=== PATIENT | female | born 1955 | race Caucasian/White ===

== ENCOUNTER 2020-05-13 08:00 | Outpatient (CLI) | payer MEDICARE ==
[2020-05-13 11:31] LABS: BASOPHILS % (AUTO) 0.5 %; EOSINOPHILS # (AUTO) 0.3 10^3/uL (0.0-0.7); EOSINOPHILS % (AUTO) 4.4 %; HGB - HEMOGLOBIN 11.6 g/dL (12.0-16.0); LYMPHOCYTES # (AUTO) 2.3 10^3/uL (1.5-3.5); LYMPHOCYTES % (AUTO) 29.4 %; MEAN CORPUSCULAR HGB CONC 31.8 g/dL (32.0-36.0); MONOCYTES # (AUTO) 0.5 10^3/uL (0.0-1.0); MONOCYTES % (AUTO) 6.9 %; NEUTROPHILS # (AUTO) 4.5 10^3/uL (1.5-6.6); NEUTROPHILS % (AUTO) 58.7 %; PLT - PLATELET COUNT 274 10^3/uL (130-450); RED BLOOD COUNT 4.15 10^6/uL (4.20-5.40); RED CELL DISTRIBUTION WIDTH 15.3 % (12.0-15.0); WHITE BLOOD COUNT 7.7 x10^3/uL (4.8-10.8)
[2020-05-13 11:51] LABS: ALBUMIN/GLOBULIN RATIO 1.1 (1.0-2.2); ALKALINE PHOSPHATASE 93 IU/L (42-121); ALT ALANINE AMINOTRANSFERASE 27 IU/L (10-60); AST ASPARTATE AMINOTRANSFERASE 28 IU/L (10-42); BILIRUBIN,TOTAL 0.6 mg/dL (0.2-1.0); BUN - BLOOD UREA NITROGEN 14 mg/dL (6-20); CARBON DIOXIDE - CO2 25 mmol/L (21-32); CHLORIDE 102 mmol/L (101-111); CHOL/HDL RATIO 2.9 (<4.4); CHOLESTEROL 132 mg/dL; CREATININE 0.8 mg/dL (0.4-1.0); CREATININE,URINE 182.1 mg/dL; GLUCOSE 112 mg/dL (70-100); HDL CHOLESTEROL 46 mg/dL; LDL CHOLESTEROL,CALCULATED 56 mg/dL; LDL/HDL RATIO 1.2 (<4.4); MICROALBUM/CREATININE RATIO,UR 4.9 ug/mg (<30.0); MICROALBUMIN,URINE 0.9 mg/dL (0-300.0); SODIUM 136 mmol/L (135-145); TOTAL PROTEIN 7.6 g/dL (6.7-8.2); VLDL CHOLESTEROL 30 mg/dL
[2020-05-13 12:18] LABS: HEMOGLOBIN A1c% 6.7 % (4.27-6.07)
== END 2020-05-13 23:59 | disposition home or self-care (01) ==
LOC: LAB.WCP 08:00
PROVIDERS: ATTEND Registered Nurse
DX: I10 Essential (primary) hypertension (principal); J44.9 Chronic obstructive pulmonary disease, unspecified; E78.5 Hyperlipidemia, unspecified; E11.9 Type 2 diabetes mellitus without complications; E03.9 Hypothyroidism, unspecified; F41.8 Other specified anxiety disorders
CPT/HCPCS: 36415; 80053; 80061; 82043; 82570; 83036; 83721; 84443; 85025

== ENCOUNTER 2020-05-31 10:48 | Outpatient (CLI) | payer MEDICARE ==
--- NOTE | 2020-05-31 12:12 | XRAY Report ---
PROCEDURE: Knee 4 View LT INDICATIONS: LEFT KNEE JOINT PAIN TECHNIQUE: 4 views of the left knee(s) were acquired. COMPARISON: None. FINDINGS: Bones: No fractures or dislocations. No suspicious bony lesions. Soft tissues: No joint effusion. No suspicious soft tissue calcifications. IMPRESSION: There is a slight degree of medial compartment joint space narrowing indicating minimal osteoarthritis in that area. No effusion or loose body found. No trauma seen. Reviewed by: Selvin Salmeron MD on 05/31/2020 12:11 PM PDT Approved by: Selvin Salmeron MD on 05/31/2020 12:11 PM PDT Station ID: [id number]
== END 2020-05-31 10:49 | disposition home or self-care (01) ==
LOC: DI 10:48
PROVIDERS: ATTEND Family Medicine
DX: M17.12 Unilateral primary osteoarthritis, left knee (principal)

== ENCOUNTER 2020-08-29 09:25 | Outpatient (CLI) | payer MEDICARE | END 2020-08-29 09:26 | disposition home or self-care (01) | LOC: LAB.R 09:25 | PROVIDERS: ATTEND Family Medicine | DX: R05 Cough (principal); Z20.828 Contact with and (suspected) exposure to other viral communicable diseases | CPT/HCPCS: 87275; 87276; U0004 ==

== ENCOUNTER 2020-10-17 10:04 | Outpatient (CLI) | payer MEDICARE ==
--- NOTE | 2020-10-17 14:07 | XRAY Report ---
PROCEDURE: Cervical Spine w/Flex/Ext INDICATIONS: lamenetomy 2015, pain stimulator 2019 TECHNIQUE: 5 views of the cervical spine were acquired. Flexion and extension views were acquired. COMPARISON: None. FINDINGS: Bones: No fractures or dislocations to the T1 level. There is anterior cervical fusion hardware from C5 through C7 which appears intact. An epidural nerve stimulator lead is present from C3 through C7. No suspicious bony lesions. There is limited range of motion in flexion and extension with preserved alignment. Soft tissues: Prevertebral soft tissues are normal in thickness. Mild bilateral carotid calcificati ons. IMPRESSION: 1. Intact anterior cervical fusion hardware. 2. Preserved alignment in flexion and extension but with limited range of motion. Reviewed by: Mariel Davison MD on 10/17/2020 12:03 PM [place] Approved by: Mariel Davison MD on 10/17/2020 12:03 PM [place] Station ID: [id number]
== END 2020-10-17 10:05 | disposition home or self-care (01) ==
LOC: DI 10:04
PROVIDERS: ATTEND Pain Medicine Pain Medicine
DX: M96.1 Postlaminectomy syndrome, not elsewhere classified (principal)

== ENCOUNTER 2020-11-04 12:35 | Outpatient (CLI) | payer MEDICARE ==
[2020-11-04 15:31] VITALS: BP 129/89
--- NOTE | 2020-11-04 15:31 | SLEEP CARE CONSULTATION ---
Information from patient questionnaire entered by Sisi Melendez. I have reviewed and concur with the information entered by Sisi Melendez. This document represents the service I personally performed and the decisions made by me, Gina Humphrey MD, [facility]. History of Present Illness Service Date and Time: 11/04/2020 1235 Reason for Visit: New patient, Previously diagnosed sleep apnea, sleep apnea on CPAP therapy Usual bedtime: 9 pm Time it takes to fall asleep: 30 minutes Snores at night: Yes Observed to quit breathing while asleep: Yes Sleeps alone due to snoring: No Number of times waking at night: 1 Reasons for waking at night: reports: Pain, Bathroom Toss, Turn, or Twitch while sleeping: No Recalls having dreams: No Usually gets out of bed at: 6 am Feels refreshed in the morning: Yes Morning headache: No Sleepy or fatigued during the day: Yes Ever fallen asleep while driving: No Takes day naps: Yes Dreams during day naps: No Prior sleep studies: Yes Additional HPI information: I had the pleasure of seeing Ms. Soto today regarding obstructive sleep apnea- hypopnea. As you know, she is a 65 year old lady who was diagnosed with the sleep-disordered breathing in [place]. She had 3 sleep studies. The records are not available. She said she was originally started on CPAP and later switched to a BiPAP ASV in 2019 for central sleep apnea. Her BiPAP ASV is set at: EPAP 9 14; Pressure support 3 16; and respiratory rate: auto. She uses every night and all night. The compliance data show usage in 178 out of the past 180 nights, averaging 8.7 hours a night. The residual AHI is 1.8 and average air leak is 16 minutes. She wears a ResMed AirTouch F-20 full face mask. She gets his supplies from [employer]. She finds the treatment very beneficial. - Parasomnia Symptoms Ever been unable to move upon waking from sleep: No Ever felt weak in the knees when startled or emotional: No Bothered by creepy, crawly, restless sensations in legs: No Problems with memory or concentration: No CPAP Compliance Data - Data Reviewed with Patient Average duration of nightly device use: 8 hr 40 min Compliance rate %: 96.1 (180 days) Current pressure setting (cmH2O): 25/16 Humidity settin Heated hose settin Average residual AHI: 3.9 Average large leak: 16 min 23 sec Subjective Initial [place] Sleepiness Scale score: 16 (in 2020) Past Medical History Past Medical History: reports: Hypertension, Diabetes, Hypothyroidism, Anxiety, Other (COPD) Social History The patient's occupation is not employed, disabled. Patient is Single and lives in [place]. Have you smoked in the past 12 months: Yes Cigarettes per day (20/pack): 20 Years of smokin Smoking Pack Years: 35.0 Alcohol use: Yes Alcohol amount and frequency: 1 drink on susannah Caffeine use: Yes Caffeine amount and frequency: 2 a day Family History Family history of sleep disordered breathing: Yes (brother) Family Hx Sleep Apnea: Sibling: Sleep apnea - Treated Allergies and Home Medications Drug allergies reviewed: Yes Home medication list reviewed: Yes Review of Systems Cardiovascular: reports: high blood pressure Respiratory: denies: shortness of breath, wheeze, sputum production, chronic cough, other Gastrointestinal: denies: heartburn, difficulty swallowing, nausea, vomitting, diarrhea, abdominal pain, other Urinary: denies: incontinence, frequency, urgency, impotence, other Neurological: denies: headaches, seizure, head trauma, disorientation, speech dysfunction, gait or balance problems, fainting or unconsciousness, other Psychiatric: reports: anxiety Ear/Nose/Throat: reports: sinus problems, dry mouth/throat, tonsillectomy, wisdom teeth removed Endocrine: reports: thyroid disease Musculoskeletal: reports: joint pain, neck pain, back pain Immunologic: reports: sneezing Physical Exam Vital signs obtained and entered by: Dr. Humphrey Blood Pressure: 129/89 Cuff size: regular Heart Rate: 95 O2 Saturation: 96 Height: 4 ft 9 in Weight: 200 lb Body Mass Index: 43.2 BMI Classification: Morbidly Obese Neck circumference: 17 Mood/affect: normal Impression and Plan IMPRESSION: 1. Central Sleep Apnea, most likely due to opiate pain medication that she takes for chronic pain. The BiPAP ASV is effective at the current setting. Her mask fits well. She has very good compliance. I will order her new supplies through [employer]. Otherwise, no adjustment is necessary today. Plan: 1. Prescription made for supplies. 2. Avoid long distance driving or when feeling sleepy. 3. Avoid alcohol, sedative and muscle relaxant around bedtime. 4. Attempt to lose weight. Counseling Topics: Weight loss health impact Visit Type: In Office Time Spent with Patient (minutes): 15 Provider Statement: I spent 100% of the Face to Face Visit with the patient with greater than 50% spent counseling the patient and coordination of care.
== END 2020-11-04 12:36 | disposition home or self-care (01) ==
LOC: SC 12:35
PROVIDERS: ATTEND Internal Medicine Pulmonary Disease
DX: G47.31 Primary central sleep apnea (principal); F17.210 Nicotine dependence, cigarettes, uncomplicated; E66.01 Morbid (severe) obesity due to excess calories; Z68.41 Body mass index [BMI] 40.0-44.9, adult
CPT/HCPCS: 99202; G0463; 99212

== ENCOUNTER 2021-01-09 08:00 | Outpatient (CLI) | payer MEDICARE ==
[2021-01-09 17:48] LABS: CALCIUM 10.4 mg/dL (8.5-10.3); CREATININE 0.8 mg/dL (0.4-1.0); CREATININE,URINE 55.6 mg/dL; MICROALBUM/CREATININE RATIO,UR 5.4 ug/mg (<30.0); MICROALBUMIN,URINE 0.3 mg/dL (0-300.0); POTASSIUM 4.7 mmol/L (3.5-5.0)
[2021-01-09 20:23] LABS: ESTIMATED AVERAGE GLUCOSE 143 mg/dL (70-100); HEMOGLOBIN A1c% 6.6 % (4.27-6.07)
== END 2021-01-09 08:01 | disposition home or self-care (01) ==
LOC: LAB.WCP 08:00
PROVIDERS: ATTEND Family Medicine
DX: E11.9 Type 2 diabetes mellitus without complications (principal)
CPT/HCPCS: 36415; 80048; 82043; 82570; 83036

== ENCOUNTER 2021-01-20 16:43 | Outpatient (CLI) | payer MEDICARE | END 2021-01-20 16:44 | disposition home or self-care (01) | LOC: COV 16:43 | PROVIDERS: ATTEND Ophthalmology | DX: Z01.812 Encounter for preprocedural laboratory examination (principal); H25.811 Combined forms of age-related cataract, right eye; E11.9 Type 2 diabetes mellitus without complications; Z20.822 Contact with and (suspected) exposure to COVID-19 ==

== ENCOUNTER 2021-01-23 06:09 | Day surgery (SDC) | payer MEDICARE ==
[2021-01-23] MEDS ORDERED: KETOROLAC 0.45% OPHTH DROPS ONE (06:26)
[2021-01-23] MEDS ORDERED: PROPARACAINE 0.5% OPHTH DROPS 15 ML ONE (06:26)
[2021-01-23] MEDS ORDERED: CYCLOPENTOLATE 2% OPHTH DROPS 2 ML RIGHTEYE ONE (06:45)
[2021-01-23] MEDS ORDERED: PHENYLEPHRINE 2.5% OPHTH 2 ML DROPS RIGHTEYE ONE (06:47)
[2021-01-23] MEDS ORDERED: LACTATED RINGERS 500 ML IV ONE (07:00)
[2021-01-23] MEDS ORDERED: BSS/LIDOCAINE/EPINEPHRINE 1 ML SYRINGE ONE (07:06)
[2021-01-23] MEDS ORDERED: EPINEPHrine 1 MG/ML AMP ONE (07:06)
[2021-01-23] MEDS ORDERED: BRIMONIDINE 0.2% OPHTH DROPS 5 ML ONE (07:06)
[2021-01-23] MEDS ORDERED: TIMOLOL 0.5% OPHTH DROPS ONE (07:06)
[2021-01-23] MEDS ORDERED: TRIAMCIN/MOXIFLOX OPHTHALMIC 0.6 ML VIAL IO ONE ×2 (07:06→07:32)
[2021-01-23] MEDS ORDERED: VANCOMYCIN OPHTHALMI 8MG/0.8ML 8 MG/0.8 ML SYRINGE IO ONE ×2 (07:06→07:33)
[2021-01-23] MEDS ORDERED: MIDAZOLAM 2 MG/2 ML VIAL ONE (07:08)
--- NOTE | 2021-01-23 07:11 | ANESTHESIA ---
Pre-Anesthesia VS, & Labs - Diagnosis r senile combined cataract - Procedure r extraction cataract w/IOL Vital Signs: Temp Pulse Resp BP Pulse Ox 36.0 C L 87 16 113/70 98 01/23/21 06:35 01/23/21 06:35 01/23/21 06:35 01/23/21 06:35 01/23/21 06:35 Height: 4 ft 9 in Weight (kg): 77 kg Body Mass Index: 36.7 BMI Classification: Obese - NPO >8 hours - Is Patient ?: No - Lab Results Current Lab Results: Laboratory Tests 01/23/21 06:47: POC Whole Bld Glucose 113 H Lab results reviewed: Yes Home Medications and Allergies Home Medications: Ambulatory Orders Atorvastatin Calcium 40 mg PO DAILY PM 01/22/21 Cyclobenzaprine [Flexeril] 10 mg PO BID 01/22/21 Escitalopram [Lexapro] 10 mg PO DAILY 01/22/21 Fluticasone Propionate [Flovent Diskus] 100 mcg IH BID PRN 01/22/21 Gabapentin [Neurontin] 400 mg PO BID 01/22/21 Lisinopril [Zestril] 10 mg PO DAILY PM 01/22/21 Melatonin/Pyridoxine [Melatonin 5 mg Tablet] 1 tab PO DAILY PM 01/22/21 Galvin-3 Acid Ethyl Esters [Lovaza] 2 gm PO BID 01/22/21 Varenicline Tartrate [Chantix] 1 mg PO BID 01/22/21 guaiFENesin [Mucinex] 600 mg PO BID 01/22/21 metFORMIN [Glucophage] 500 mg PO DAILY 01/22/21 Levothyroxine [Synthroid] 25 mg PO DAILY 01/23/21 Atorvastatin Calcium 40 mg PO DAILY PM 01/22/21 Cyclobenzaprine [Flexeril] 10 mg PO BID 01/22/21 Escitalopram [Lexapro] 10 mg PO DAILY 01/22/21 Fluticasone Propionate [Flovent Diskus] 100 mcg IH BID PRN 01/22/21 Gabapentin [Neurontin] 400 mg PO BID 01/22/21 Lisinopril [Zestril] 10 mg PO DAILY PM 01/22/21 Melatonin/Pyridoxine [Melatonin 5 mg Tablet] 1 tab PO DAILY PM 01/22/21 Galvin-3 Acid Ethyl Esters [Lovaza] 2 gm PO BID 01/22/21 Varenicline Tartrate [Chantix] 1 mg PO BID 01/22/21 guaiFENesin [Mucinex] 600 mg PO BID 01/22/21 metFORMIN [Glucophage] 500 mg PO DAILY 01/22/21 Levothyroxine [Synthroid] 25 mg PO DAILY 01/23/21 Allergies/Adverse Reactions: Allergies Allergy/AdvReac Type Severity Reaction Status Date / Time propoxyphene Allergy Anaphylaxis Verified 01/23/21 06:53 [From Darvocet-N] methadone AdvReac Unknown Verified 01/23/21 06:53 Anes History & Medical History - Anesthetic History Anesthesia Complications: reports: No previous complications Family history of Anesthesia Complications: Denies Family history of Malignant Hyperthermia: Denies - Medical History Cardiovascular: reports: Hypertension, High cholesterol Pulmonary: reports: Sleep apnea, CPAP use Gastrointestinal: reports: None Urinary: reports: None, Other Musculoskeletal: reports: Osteoarthritis Endocrine/Autoimmune: reports: Type 2 diabetes Skin: reports: None - Surgical History Eyes Ears Nose Throat (EENT): reports: Tonsil/Adenoidectomy Gynecologic: reports: Hysterectomy Orthopedic: reports: Spine surgery Exam General: Alert, Oriented x3, Cooperative Dental: Dentures full Upper, Dentures full Lower Mouth Openin Fingerbreadth Neck Mobility: Normal Mallampati classification: II Thyromental Distance: 4-6 cm Respiratory: Lungs clear, Normal breath sounds, No respiratory distress Cardiovascular: Regular rate Neurological: Normal speech Mental/Cognitive Status: Alert/Oriented X3, Normal for patient Cognitive Status: Within normal limits Plan Anesthesia Type: MAC Consent for Procedure(s) Verified and Reviewed: Yes Code Status: Attempt Resuscitation ASA classification: 2-Mild systemic disease Is this case an emergency?: No
[2021-01-23] MEDS ORDERED: BRIMONIDINE 0.2% OPHTH DROPS 5 ML OPTH ONE (07:31)
[2021-01-23] MEDS ORDERED: BSS/LIDOCAINE/EPINEPHRINE 1 ML SYRINGE IO ONE (07:32)
[2021-01-23] MEDS ORDERED: EPINEPHrine 1 MG/ML AMP IR ONE (07:32)
[2021-01-23] MEDS ORDERED: TIMOLOL 0.5% OPHTH DROPS OPTH ONE (07:32)
[2021-01-23] MEDS ORDERED: CHONDR SULF/HYALURONATE SYRINGE IO ONE (07:32)
[2021-01-23] MEDS ORDERED: PROPARACAINE 0.5% OPHTH DROPS 15 ML EACHEYE ONE (07:33)
[2021-01-23] MEDS ORDERED: LACTATED RINGERS 1,000 ML IV ONE (07:58)
--- NOTE | 2021-01-23 07:58 | OPERATIVE REPORT ---
Operative Report - Other Other Information/Narrative: Date of Surgery: 01/23/21 Preop Dx: Visually significant cataract right eye. This was the first cataract surgery. Postop Dx: Same Procedure: Phacoemulsification with posterior chamber intraocular lens implant right eye Surgeon: Dr. Fernandez Sher Anesthesia: Monitored anesthesia care Complications: None Operative Indications: This is a 65-year-old F with progressive vision loss in the right eye due to 2+ nuclear sclerotic. Best corrected visual acuity was 20/40 with glare to 20/150 vision in the right eye. Indications for surgery were: - Overall decrease in vision - Difficulty seeing words on a computer screen - Difficulty reading - Difficulty seeing words, closed captions, or game scores on TV - Difficulty seeing street signs - Difficulty driving at night because of headlights from other vehicles - Difficulty with glare or bright lights in any situation The patient was consented at length concerning the risks and benefits of cataract surgery after which the patient expressed a desire to proceed with surgery. Operative Procedure: The patient was taken into OR#3 and placed under monitored anesthesia care. A surgical time-out was conducted confirming correct patient, correct procedure, and correct surgical site. The patient was given topical ane sthesia and then prepped and draped in the usual sterile fashion. The eye was entered at the 6 and 3 oclock positions. Intracameral Shugarcaine was injected into the anterior chamber followed by a dispersive viscoelastic. A continuous- tear curvilinear capsulorhexis was performed. The nucleus was hydrodissected and phacoemulsified. The cortex was evacuated using automated infusion and aspiration. A cohesive viscoelastic was injected into the capsular bag and a 18.0 diopter intraocular lens was inserted into the bag. Infusion and aspiration were used to evacuate the viscoelastic materials from the eye. The wounds were hydrated and the eye inflated to physiologic pressure using balanced salt solution. Approximately 0.25ml of a mixture of triamcinolone and moxifloxacin was injected trans-sclerally into the vitreous in the inferotemporal quadrant using a 30 gauge cannula. An additional 0.55ml of a mixture of triamcinolone, moxifloxacin, and vancomycin was injected subconjunctivally in the superior quadrant for infection and inflammation prophylaxis. Wound integrity was checked with Weck-Mesha sponges. The patient was taken from the operating room in good condition and given post-op instructions.
[2021-01-23 08:01] VITALS: BP 111/78
--- NOTE | 2021-01-23 10:08 | ANESTHESIA POST OP EVALUATION ---
Anesthesia Post Eval - Post Anesthesia Eval Vitals: Last Vital Signs Temp 36.2 C L 01/23/21 08:00 Pulse 81 01/23/21 08:00 Resp 16 01/23/21 08:00 BP 111/78 01/23/21 08:00 Pulse Ox 98 01/23/21 08:00 CV Function Including HR & BP: Stable Pain Control: Satisfactory Nausea & Vomiting: Negative Mental Status: Baseline Respiratory Status: Airway Patent Hydration Status: Satisfactory Anesthesia Complications: None
== END 2021-01-23 06:10 | disposition home or self-care (01) ==
LOC: SDS 06:09
PROVIDERS: ATTEND Ophthalmology
DX: E11.36 Type 2 diabetes mellitus with diabetic cataract (principal); H25.811 Combined forms of age-related cataract, right eye; H18.593 Other hereditary corneal dystrophies, bilateral; I10 Essential (primary) hypertension; E78.00 Pure hypercholesterolemia, unspecified; G47.30 Sleep apnea, unspecified; F41.9 Anxiety disorder, unspecified; E03.9 Hypothyroidism, unspecified; M19.90 Unspecified osteoarthritis, unspecified site; Z87.891 Personal history of nicotine dependence; E66.9 Obesity, unspecified; Z68.36 Body mass index [BMI] 36.0-36.9, adult; Z79.84 Long term (current) use of oral hypoglycemic drugs; Z79.899 Other long term (current) drug therapy
CPT/HCPCS: 66984; A9270; J3490; J7120

== ENCOUNTER 2021-02-27 06:22 | Day surgery (SDC) | payer MEDICARE ==
[~2021-02-27 06:22] MED LIST: KETOROLAC 0.45% OPHTH DROPS ONE; PROPARACAINE 0.5% OPHTH DROPS 15 ML ONE
[2021-02-27] MEDS: PHENYLEPHRINE 2.5% OPHTH 2 ML DROPS ONE ×3 (06:38→06:48)
[2021-02-27] MEDS: CYCLOPENTOLATE 1% OPHTH DROPS 2 ML ONE ×3 (06:39→06:49)
[2021-02-27] MEDS ORDERED: LACTATED RINGERS 1,000 ML IV ONE (06:44)
[2021-02-27] MEDS ORDERED: TIMOLOL 0.5% OPHTH DROPS ONE (07:02)
[2021-02-27] MEDS ORDERED: TRIAMCIN/MOXIFLOX OPHTHALMIC 0.6 ML VIAL IO ONE ×2 (07:02→07:31)
[2021-02-27] MEDS ORDERED: EPINEPHrine 1 MG/ML AMP ONE (07:02)
[2021-02-27] MEDS ORDERED: BRIMONIDINE 0.2% OPHTH DROPS 5 ML ONE (07:02)
[2021-02-27] MEDS ORDERED: BSS/LIDOCAINE/EPINEPHRINE 1 ML SYRINGE ONE (07:03)
[2021-02-27] MEDS ORDERED: VANCOMYCIN OPHTHALMI 8MG/0.8ML 8 MG/0.8 ML SYRINGE IO ONE ×2 (07:03→07:31)
[2021-02-27] MEDS ORDERED: MIDAZOLAM 2 MG/2 ML VIAL ONE (07:05)
--- NOTE | 2021-02-27 07:09 | ANESTHESIA ---
Pre-Anesthesia VS, & Labs - Diagnosis left eye senile combined cataract - Procedure left eye cataract extraction with IOL implant Height: 4 ft 9 in Weight (kg): 78.7 kg Body Mass Index: 37.5 BMI Classification: Obese - NPO >8 hours - Is Patient ?: No - Lab Results Current Lab Results: Laboratory Tests 02/27/21 06:47: POC Whole Bld Glucose 102 H Home Medications and Allergies Atorvastatin Calcium 40 mg PO DAILY PM 01/22/21 Cyclobenzaprine [Flexeril] 10 mg PO BID 01/22/21 Escitalopram [Lexapro] 10 mg PO DAILY 01/22/21 Fluticasone Propionate [Flovent Diskus] 100 mcg IH BID PRN 01/22/21 Gabapentin [Neurontin] 400 mg PO BID 01/22/21 Lisinopril [Zestril] 10 mg PO DAILY PM 01/22/21 Melatonin/Pyridoxine [Melatonin 5 mg Tablet] 1 tab PO DAILY PM 01/22/21 Thorndike-3 Acid Ethyl Esters [Lovaza] 2 gm PO BID 01/22/21 Varenicline Tartrate [Chantix] 1 mg PO BID 01/22/21 guaiFENesin [Mucinex] 600 mg PO BID 01/22/21 metFORMIN [Glucophage] 500 mg PO DAILY 01/22/21 Levothyroxine [Synthroid] 25 mg PO DAILY 01/23/21 Allergies/Adverse Reactions: Allergies Allergy/AdvReac Type Severity Reaction Status Date / Time propoxyphene Allergy Anaphylaxis Verified 02/27/21 06:41 [From Darvocet-N] methadone AdvReac Unknown Verified 02/27/21 06:41 Anes History & Medical History - Anesthetic History Anesthesia Complications: reports: No previous complications - Medical History Cardiovascular: reports: Hypertension, High cholesterol Pulmonary: reports: COPD, Sleep apnea, CPAP use Gastrointestinal: reports: None Urinary: reports: None Neuro: reports: None Musculoskeletal: reports: None Endocrine/Autoimmune: reports: Type 2 diabetes, HyPOthyroidism Blood Disorders: reports: None Skin: reports: None Psychosocial: reports: No issues indicated - Surgical History General: reports: Other Eyes Ears Nose Throat (EENT): reports: Cataracts, Tonsil/Adenoidectomy Gynecologic: reports: section, Hysterectomy Exam General: Alert, Oriented x3, Cooperative, No acute distress Dental: Dentures full Upper, Dentures full Lower Mouth Openin Fingerbreadth Neck Mobility: Normal Mallampati classification: III Thyromental Distance: 4-6 cm Mental/Cognitive Status: Alert/Oriented X3, Normal for patient Plan Anesthesia Type: MAC Consent for Procedure(s) Verified and Reviewed: Yes Code Status: Attempt Resuscitation ASA classification: 3-Severe systemic disease Is this case an emergency?: No
[2021-02-27] MEDS ORDERED: EPINEPHrine 1 MG/ML AMP IR ONE (07:30)
[2021-02-27] MEDS ORDERED: BRIMONIDINE 0.2% OPHTH DROPS 5 ML OPTH ONE (07:30)
[2021-02-27] MEDS ORDERED: TIMOLOL 0.5% OPHTH DROPS OPTH ONE (07:31)
[2021-02-27] MEDS ORDERED: BSS/LIDOCAINE/EPINEPHRINE 1 ML SYRINGE IO ONE (07:31)
[2021-02-27] MEDS ORDERED: CHONDR SULF/HYALURONATE SYRINGE IO ONE (07:31)
[2021-02-27] MEDS ORDERED: PROPARACAINE 0.5% OPHTH DROPS 15 ML EACHEYE ONE (07:31)
[2021-02-27] MEDS ORDERED: LACTATED RINGERS 700 ML IV ONE (07:48)
[2021-02-27 08:11] VITALS: BP 124/70
--- NOTE | 2021-02-27 09:01 | OPERATIVE REPORT ---
Operative Report - Other Other Information/Narrative: Date of Surgery: 02/27/21 Preop Dx: Visually significant cataract left eye. Cataract surgery was performed in the right eye on 01/23/21. Postop Dx: Same Procedure: Phacoemulsification with posterior chamber intraocular lens implant left eye Surgeon: Dr. Fernandez Sher Anesthesia: Monitored anesthesia care Complications: None Operative Indications: This is a 65-year-old F with progressive vision loss in the left eye due to 2+ nuclear sclerotic and 1+ posterior subcapsular cataract. Best corrected visual acuity was 20/50 with glare to hand-motion vision in the left eye. Indications for surgery were: - Overall decrease in vision - Difficulty seeing street signs - Difficulty driving at in low light or at night - Difficulty driving at night because of headlights from other vehicles The patient was consented at length concerning the risks and benefits of cataract surgery after which the patient expressed a desire to proceed with surgery. Operative Procedure: The patient was taken into OR#3 and placed under monitored anesthesia care. A surgical time-out was conducted confirming correct patient, correct procedure, and correct surgical site. The patient was given topical anesthesia and then prepped and draped in the usual sterile fashion. The eye was entered at the 6 and 3 oclock positions. Intracameral Shugarcaine was injected into the anterior chamber followed by a dispersive viscoelastic. A continuous-tear curvilinear capsulorhexis was performed. The nucleus was hydrodissected and phacoemulsified. The cortex was evacuated using automated infusion and aspiration. A cohesive viscoelastic was injected into the capsular bag and a 16.5 diopter intraocular lens was inserted into the bag. Infusion and aspiration were used to evacuate the viscoelastic materials from the eye. The wounds were hydrated and the eye inflated to physiologic pressure using balanced salt solution. Approximately 0.25ml of a mixture of triamcinolone and moxifloxacin was injected trans-sclerally into the vitreous in the inferotemporal quadrant using a 30 gauge cannula. An additional 0.55ml of a mixture of triamcinolone, moxifloxacin, and vancomycin was injected subconjunctivally in the superior quadrant for infection and inflammation prophylaxis. Wound integrity was checked with Weck-Mesha sponges. The patient was taken from the operating room in good condition and given post-op instructions.
--- NOTE | 2021-02-27 09:49 | ANESTHESIA POST OP EVALUATION ---
Anesthesia Post Eval - Post Anesthesia Eval Vitals: Last Vital Signs Temp 36.8 C 02/27/21 08:11 Pulse 81 02/27/21 08:11 Resp 16 02/27/21 08:11 BP 124/70 02/27/21 08:11 Pulse Ox 98 02/27/21 08:11 CV Function Including HR & BP: Stable Pain Control: Satisfactory Nausea & Vomiting: Negative Mental Status: Baseline Respiratory Status: Airway Patent Hydration Status: Satisfactory Anesthesia Complications: None
== END 2021-02-27 06:23 | disposition home or self-care (01) ==
LOC: SDS 06:22
PROVIDERS: ATTEND Ophthalmology
DX: E11.36 Type 2 diabetes mellitus with diabetic cataract (principal); H25.812 Combined forms of age-related cataract, left eye; J44.9 Chronic obstructive pulmonary disease, unspecified; E03.9 Hypothyroidism, unspecified; I10 Essential (primary) hypertension; G47.30 Sleep apnea, unspecified; E66.9 Obesity, unspecified; Z68.37 Body mass index [BMI] 37.0-37.9, adult; Z87.891 Personal history of nicotine dependence; Z79.84 Long term (current) use of oral hypoglycemic drugs; Z98.41 Cataract extraction status, right eye
CPT/HCPCS: 66984; A9270; J3490; J7120

== ENCOUNTER 2021-04-14 09:57 | Outpatient (CLI) | payer MEDICARE ==
[2021-04-14 12:55] LABS: CALCIUM 9.6 mg/dL (8.5-10.3); CREATININE 0.8 mg/dL (0.4-1.0); POTASSIUM 5.4 mmol/L (3.5-5.0)
[2021-04-14 13:04] LABS: ESTIMATED AVERAGE GLUCOSE 146 mg/dL (70-100); HEMOGLOBIN A1c% 6.7 % (4.27-6.07)
== END 2021-04-14 23:59 | disposition home or self-care (01) ==
LOC: LAB.WCP 09:57
PROVIDERS: ATTEND Family Medicine
DX: E11.9 Type 2 diabetes mellitus without complications (principal)
CPT/HCPCS: 36415; 80048; 83036

== ENCOUNTER 2021-07-22 07:21 | Outpatient (CLI) | payer MEDICARE ==
[2021-07-22 12:28] LABS: ESTIMATED AVERAGE GLUCOSE 148 mg/dL (70-100); HEMOGLOBIN A1c% 6.8 % (4.27-6.07)
[2021-07-22 12:43] LABS: ALBUMIN 3.9 g/dL (3.2-5.5); ALKALINE PHOSPHATASE 75 IU/L (42-121); ALT ALANINE AMINOTRANSFERASE 35 IU/L (10-60); AST ASPARTATE AMINOTRANSFERASE 38 IU/L (10-42); BILIRUBIN,TOTAL 0.5 mg/dL (0.2-1.0); BUN - BLOOD UREA NITROGEN 19 mg/dL (6-20); CALCIUM 9.4 mg/dL (8.5-10.3); CARBON DIOXIDE - CO2 25 mmol/L (21-32); CHLORIDE 103 mmol/L (101-111); CHOL/HDL RATIO 3.2 (<4.4); CHOLESTEROL 118 mg/dL; CREATININE 0.7 mg/dL (0.4-1.0); GFR - MDRD 85 (>89); GLUCOSE 110 mg/dL (70-100); HDL CHOLESTEROL 37 mg/dL; LDL CHOLESTEROL,CALCULATED 56 mg/dL; LDL/HDL RATIO 1.5 (<4.4); POTASSIUM 4.2 mmol/L (3.5-5.0); SODIUM 139 mmol/L (135-145); TOTAL PROTEIN 7.9 g/dL (6.7-8.2); TRIGLYCERIDES 123 mg/dL; VLDL CHOLESTEROL 25 mg/dL
[2021-07-22 12:45] LABS: CREATININE,URINE 220.1 mg/dL; MICROALBUM/CREATININE RATIO,UR 7.3 ug/mg (<30.0); MICROALBUMIN,URINE 1.6 mg/dL (0-300.0)
[2021-07-22 12:50] LABS: THYROID STIMULATING HORMONE 1.99 uIU/mL (0.34-5.60)
[2021-07-22 13:16] LABS: BASOPHILS % (AUTO) 0.5 %; EOSINOPHILS # (AUTO) 0.4 10^3/uL (0.0-0.7); EOSINOPHILS % (AUTO) 5.3 %; HCT - HEMATOCRIT 39.1 % (37.0-47.0); HGB - HEMOGLOBIN 11.5 g/dL (12.0-16.0); LYMPHOCYTES # (AUTO) 2.6 10^3/uL (1.5-3.5); LYMPHOCYTES % (AUTO) 31.2 %; MEAN CORPUSCULAR HEMOGLOBIN 25.7 pg (27.0-31.0); MEAN CORPUSCULAR HGB CONC 29.4 g/dL (32.0-36.0); MEAN CORPUSCULAR VOLUME 87.3 fL (81.0-99.0); MEAN PLATELET VOLUME 9.5 fL (7.9-10.8); MONOCYTES # (AUTO) 0.7 10^3/uL (0.0-1.0); MONOCYTES % (AUTO) 8.3 %; NEUTROPHILS # (AUTO) 4.5 10^3/uL (1.5-6.6); NEUTROPHILS % (AUTO) 54.3 %; PLT - PLATELET COUNT 320 10^3/uL (130-450); RED BLOOD COUNT 4.48 10^6/uL (4.20-5.40); RED CELL DISTRIBUTION WIDTH 15.9 % (12.0-15.0); WHITE BLOOD COUNT 8.3 x10^3/uL (4.8-10.8)
== END 2021-07-22 23:59 | disposition home or self-care (01) ==
LOC: LAB.WCP 07:21
PROVIDERS: ATTEND Family Medicine
DX: I10 Essential (primary) hypertension (principal); E78.5 Hyperlipidemia, unspecified; E11.9 Type 2 diabetes mellitus without complications; E03.9 Hypothyroidism, unspecified
CPT/HCPCS: 36415; 80053; 80061; 82043; 82570; 83036; 83721; 84443; 85025

== ENCOUNTER 2021-10-09 07:30 | Outpatient (CLI) | payer MEDICARE ==
--- NOTE | 2021-10-09 11:08 | CT Report ---
PROCEDURE: Low Dose Lung Cancer Screen INDICATIONS: SMOKER TECHNIQUE: Noncontrast low-dose images were acquired from the pulmonary apices to the posterior costophrenic ang les. Multiplanar MIP reformats were then acquired. For radiation dose reduction, the following was used: automated exposure control, adjustment of mA and/or kV according to patient size. COMPARISON: None. FINDINGS: Image quality: Excellent. Lungs and pleura: A few pulmonary nodules. For example: Right middle lobe measuring 1.1 x 1 cm, (4/183). Right lung base measuring 0.4 cm, (4/194). Left major fissure measuring 0.3 cm, (4/148). Left lower lobe measuring 0.4 cm, (4/223). A few areas of scattered streaky opacity which has the appearance of atelectasis. Mild emphysematous change. Central airways are clear. No pleural effusion. Mediastinum: Heart size is normal. No pericardial effusion. No mediastinal adenopathy by size crit eria. Thoracic aorta and central pulmonary arteries are normal in size. Esophagus is normal in marvin ginny. No hiatal hernia. Bones and chest wall: No suspicious bony lesions. No vertebral body compression fractures. Cervica l spine thecal leads. Right lower back generator device. No axillary or supraclavicular adenopathy by size criteria. The thyroid is normal in size and there are no incidental findings. Abdomen: Visualized upper abdomen solid organs and bowel loops appear normal in the absence of contr ast. IMPRESSION: 1. Right middle lobe pulmonary nodule measuring 1.1 cm. Lung RADS 4A. Recommend CT chest in 3 months. PET/CT could also be considered for further evaluation. 2. A few additional pulmonary nodules measuring 0.4 cm or less. 3. Mild emphysematous change. Reviewed by: Willi Richardson MD on 10/09/2021 11:07 AM [facility] Approved by: Willi Richardson MD on 10/09/2021 11:07 AM [facility] Station ID: [id number]
== END 2021-10-09 07:31 | disposition home or self-care (01) ==
LOC: DI 07:30
PROVIDERS: ATTEND Family Medicine
DX: Z12.2 Encounter for screening for malignant neoplasm of respiratory organs (principal); J43.9 Emphysema, unspecified; F17.210 Nicotine dependence, cigarettes, uncomplicated; R91.8 Other nonspecific abnormal finding of lung field

== ENCOUNTER 2021-10-22 07:57 | Outpatient (CLI) | payer MEDICARE ==
[2021-10-22 12:31] LABS: CALCIUM 9.7 mg/dL (8.5-10.3); CREATININE 0.9 mg/dL (0.4-1.0); POTASSIUM 4.3 mmol/L (3.5-5.0)
[2021-10-22 12:54] LABS: ESTIMATED AVERAGE GLUCOSE 146 mg/dL (70-100); HEMOGLOBIN A1c% 6.7 % (4.27-6.07)
== END 2021-10-22 07:58 | disposition home or self-care (01) ==
LOC: LAB.N 07:57
PROVIDERS: ATTEND Family Medicine
DX: E11.9 Type 2 diabetes mellitus without complications (principal)
CPT/HCPCS: 36415; 80048; 83036

== ENCOUNTER 2021-11-06 08:00 | Outpatient (CLI) | payer MEDICARE ==
--- NOTE | 2021-11-06 09:58 | XRAY Report ---
PROCEDURE: Lumbar Spine 2 View INDICATIONS: BACK PAIN, LUMBAR TECHNIQUE: 3 views of the lumbar spine were acquired. COMPARISON: None. FINDINGS: Bones: 5 [id number] vertebrae are present. There is normal bony alignment. There is a remote L 1 compression fracture. Mild leftward curvature of the thoracolumbar spine. The lower lumbar spine mendiola s facet arthrosis. No suspicious bony lesions. Soft tissues: Overlying bowel gas pattern is normal. No suspicious soft tissue calcifications. IMPRESSION: 1. No acute abnormality. 2. Chronic compression fracture of L1. 3. 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 Reviewed by: Kel Cardoso on 11/06/2021 9:57 AM [facility] Approved by: Kel Cardoso on 11/06/2021 9:57 AM [facility] Station ID: [id number]
--- NOTE | 2021-11-06 10:01 | XRAY Report ---
PROCEDURE: Hip w/Pelvis 2-3V RT INDICATIONS: HIP PAIN, RIGHT TECHNIQUE: AP pelvis with lateral view(s) of the right hip(s). COMPARISON: None. FINDINGS: Bones: No fractures or dislocations. Pelvic ring appears intact. No suspicious bony lesions. Mini mal degenerative changes. Soft tissues: The visualized bowel gas pattern is normal. No suspicious soft tissue calcifications. Multiple pelvic phleboliths are seen. There is a stimulator device superimposed over the right ante rior superior iliac spine. IMPRESSION: No acute abnormality of the pelvis or right hip. Reviewed by: Kel Cardoso on 11/06/2021 9:59 AM [facility] Approved by: Kel Cardoso on 11/06/2021 9:59 AM [facility] Station ID: [id number]
== END 2021-11-06 23:59 | disposition home or self-care (01) ==
LOC: DI.N 08:00
PROVIDERS: ATTEND Family Medicine
DX: M25.551 Pain in right hip (principal); M47.816 Spondylosis without myelopathy or radiculopathy, lumbar region; M48.56XA Collapsed vertebra, not elsewhere classified, lumbar region, initial encounter for fracture

== ENCOUNTER 2021-12-31 16:08 | Outpatient (CLI) | payer MEDICARE ==
[2021-12-31 17:16] VITALS: BP 131/71
--- NOTE | 2021-12-31 17:16 | SLEEP CARE CONSULTATION ---
Information from patient questionnaire entered by Lavon Dickey MA. I have reviewed and concur with the information entered by Lavon Dickey MA. This document represents the service I personally performed and the decisions made by , Isabel Li ARNP. History of Present Illness Service Date and Time: 12/31/2021 1608 Previous diagnosis: Central Sleep Apnea-Hypopnea Syndrome (unknown severity) Reason for follow up: annual (LAST SEEN 09/2020, NEEDS A CHIP FOR COMPLAINCE, ) Equipment type: ASV Equipment obtained from: Other ([email or web address]; getting supplies as needed) Mask style: Full face Mask brand: Resmed (AirTouch F20, medium) Backup mask available: Yes (old mask) Prior sleep studies: Yes HPI additional information: ENIO ARRIETA was diagnosed to have central sleep apnea-hypopnea syndrome, AHI unknown, and returned today for BIPAP ASV therapy annual follow-up. Sleep Study - Results Prior sleep studies: Yes CPAP Compliance Data Compliance data discussion: Patient forgot to bring in her memory chip. She is using her machine every night. She has a generator now for power outages. She states in the last 3 months her machine is running out of water and then will have a metallic odor that will wake her up. Her machine is on the [employer]. Subjective Missed days of use due to: reports: other (RECALLED MACHINE, RUNS OUT OF WATER DURING THE NIGHT,) Patient concerns: reports: mask leak noise, nasal congestion (all the time; has allergies), other (HEAD ACHE). denies: aerophagia, air blowing in eyes, condensation in mask/hose, dry mouth, nose, throat, epistaxis Observed to snore while using device: No Current pressure setting perceived as: comfortable (could be a little low at the beginning of night) On therapy, patient: reports: sleeping better, awakening more refreshed, being more awake and alert during the day, more rested overall. denies: drowsiness while driving Initial [place] Sleepiness Scale score: 16 (in 2020) Current [place] Sleepiness Scale score: 14 (12/2021) Allergies and Home Medications Home medication list reviewed: Yes (stopped oxycodone 10 over a year ago; stopped lisinopril) Allergy and home medication list: Allergies propoxyphene [From Darvocet-N] Allergy (Verified 02/27/21 06:41) Anaphylaxis methadone Adverse Reaction (Verified 02/27/21 06:41) Unknown Review of Systems Review of systems same as previous: No (bilateral cataract surgery) Physical Exam Vital signs obtained and entered by: BRYNN KAPLAN Blood Pressure: 131/71 (RIGHT, PULSE 90, RESP 20,) Cuff size: wrist Heart Rate: 92 O2 Saturation: 96 (PAPER MASK) Height: 4 ft 9 in Weight: 159 lb (WITH CLOTHES) Weight change since last visit: PT HAS LOST WEIGHT, WALKS EACH DAY. 21 pounds Body Mass Index: 34.4 BMI Classification: Obese Impression and Plan 1. Central Sleep Apnea-Hypopnea Syndrome, unknown, with unknown treatment compliance and unknown apnea control. On BIPAP therapy, the patient has better sleep quality and is more rested overall. We do not have a sleep study for Enio on file and her last sleep study was done in [place] but she is unsure of the exact date. Patient has also lost 21 pounds recently. I think we should get a sleep study to verify her diagnosis and severity. Patient agreed. She has been with the same DME, [employer] for supplies without any issues. She states in the last 3 months her water chamber has been running out of water and she is getting a sharp metallic odor that will wake her up. This has been giving her headaches. She contacted [employer] for a new machine and they directed her here for a prescription. She also had a [employer] BIPAP ASV. Patient has already registered their device for the recall. If patient is not able to sleep due to waking up choking, gasping for air or other respiratory distress that they may decide to continue using it until it is either replaced or repaired. Because her machine heating element appears to be malfunctioning I will try to see if we can replace her device. I will order the sleep study and also send a prescription to replace her device once I have the download from her memory chip. She said she would bring this in tomorrow. Patient voiced understanding and agreement with plan. Patient's apnea severity and rationale for treatment to reduce apnea, improve sleep quality and reduce cardiovascular and cerebrovascular events was reviewed. I also reviewed the benefit of consistent device use of BIPAP for hypertension, diabetes, anxiety and COPD. 2. Obesity, unspecified. Patient has lost weight. Currently patients BMI is 34.4. Obesity increases the risk of apnea, CPAP pressure requirements and overall health risks especially cardiovascular and diabetes. Thus patient is advised to continue to try to lose weight. Weight loss can be done with reducing portion size, reducing refined foods and balancing content with vegetables, fruit and whole grain foods. In addition, patient encouraged to get regular exercise. * Continue ASV BIPAP pressure at EPAP 9 14 with pressure support 3 16 cmH2O * Update device due to malfunction * Polysomnography to establish severity of sleep apnea * Notify me if snoring with mask or feeling that the pressure is too much or too little * Continue to try to lose weight * Call this office if any problems using BIPAP * Return for follow up one month after obtaining new device and after her sleep study if this is approved, or sooner if concerns arise Counseling Topics: Spare mask, Weight loss health impact Visit Type: In Office Time Spent with Patient (minutes): 38 Provider Statement: I spent 100% of the Face to Face Visit with the patient with greater than 50% spent counseling the patient and coordination of care.
== END 2021-12-31 16:09 | disposition home or self-care (01) ==
LOC: SC 16:08
PROVIDERS: ATTEND Nurse Practitioner Family
DX: G47.31 Primary central sleep apnea (principal); E66.9 Obesity, unspecified; Z68.34 Body mass index [BMI] 34.0-34.9, adult
CPT/HCPCS: 99214; G0463; 99212

== ENCOUNTER 2022-01-06 16:52 | Outpatient (CLI) | payer MEDICARE ==
--- NOTE | 2022-01-07 09:57 | CT Report ---
PROCEDURE: CHEST WO INDICATIONS: LUNG NODULE TECHNIQUE: Noncontrast 1mm axial images were acquired from the pulmonary apices to the posterior costophrenic an gles. Axial 5 mm soft tissue kernel reconstructions were performed as well as 8 mm axial MIP and cor onal and sagittal 5 mm reformations. For radiation dose reduction, the following was used: automate d exposure control, adjustment of mA and/or kV according to patient size. COMPARISON: October 09, 2021 FINDINGS: Thyroid: Homogeneous. Vasculature: Normal size and contour. Heart: No cardiomegaly or pericardial effusion. Mediastinum/isaías: No pathologically enlarged lymph nodes by size criteria. Lung/pleura: No consolidation, pleural effusion, or pneumothorax. Right middle lobe : measuring 1 x 0.9 cm, grossly unchanged (6-162). Right upper lobe, apex: 3.3 mm (6-41). Left lower lobe, pleura: 4.2 mm (6-211) Right lower lobe, base: 4.9 mm (6-22). Tracheobronchial tree: Patent. Upper abdomen: No acute abnormality. Bones: Multifocal degenerative change. Redemonstrated central compression deformity of L1. Chest wall: No significant abnormality. IMPRESSION: 1.Stable nodule in the right middle lobe. As previously suggested, PET/CT may be helpful for further evaluation. Lung RADS: 2: Continued annual screening in 12 months. Reviewed by: Rico Villalobos MD on 01/07/2022 9:55 AM PDT Approved by: Rico Villalobos MD on 01/07/2022 9:55 AM PDT Station ID: [id number]
== END 2022-01-06 16:53 | disposition home or self-care (01) ==
LOC: DI 16:52
PROVIDERS: ATTEND Family Medicine
DX: R91.1 Solitary pulmonary nodule (principal)

== ENCOUNTER 2022-02-13 15:47 | Outpatient (CLI) | payer MEDICARE ==
[2022-02-13 16:30] VITALS: BP 137/92
--- NOTE | 2022-02-13 16:30 | SLEEP CARE CONSULTATION ---
Information from patient questionnaire entered by Lavon Dickey MA. I have reviewed and concur with the information entered by Lavon Dickey MA. This document represents the service I personally performed and the decisions made by , Isabel Li ARNP. History of Present Illness Service Date and Time: 02/13/2022 1547 Accompanied by: Daughter Initial [place] Sleepiness Scale score: 16 (in 2020) Current [place] Sleepiness Scale score: 16 (02/13/2022) Additional HPI information: ENIO ARRIETA returns for follow up and results of the recently performed polysomnography. The patient was informed of the following findings: No significant sleep disordered breathing with an average AHI of 4.7 and cathleen oxygen saturation of 79%. He had moderate periodic leg movements of sleep and mild hypoxia with a low baseline oxygen saturation of 90%. I explained the pathophysiology behind obstructive sleep apnea. Patient does not have sleep apnea and was advised how weight gain could increase the risk of developing sleep apnea in the future. I strongly encouraged the patient to lose weight. Patient does not have significant sleep disordered breathing but has elevated AHI in non-supine position so advised positional therapy to avoid sleeping non-supine. Patient has moderate to loud snoring. Snoring can be reduced by weight loss. Weight loss is best achieved with diet consult. Patient instructed to contact PCP for referral. Snoring can also be treated with an oral appliance from a dentist. Advised to check insurance coverage. In addition, an ENT evaluation can be do to see if other treatment is indicated. Patient was cautioned about risks of drowsy driving until sleepiness symptoms resolve. Sleep Study - Results Type of Sleep Study: Polysomnography (F/U POLY, 01/22/2022 [facility], HYPOXEMIA?) Prior sleep studies: Yes Polysomnography/Home Sleep Study results: IMPRESSION: The quality of the study is good. The patient had normal sleep efficiency. The sleep architecture was relatively normal as well considering the first night effect. Respiratory monitoring showed no significant sleep disordered breathing (AHI = 4.7). There was moderate hypoxia (cathleen oxygen saturation of 79%) due to low baseline oxygen saturation of 90%. The patient spent 87 minutes with oxygen saturation at or below 88%. The respiratory events occurred mainly during REM sleep (supine AHI = 1.4; non- supine = 6.01). Snore was moderate to loud in intensity. There was moderate periodic leg movement of sleep not associated with sleep fragmentation. Cardiac rhythm was normal sinus rhythm without significant arrhythmia. No abnormal behavior (parasomnia) observed during the night. Allergies and Home Medications Known drug allergies: Yes Drug allergies reviewed: Yes Home medication list reviewed: Yes (no changes) Allergy and home medication list: Allergies propoxyphene [From Darvocet-N] Allergy (Verified 02/27/21 06:41) Anaphylaxis methadone Adverse Reaction (Verified 02/27/21 06:41) Unknown Review of Systems Review of systems same as previous: Yes (no changes) Physical Exam Vital signs obtained and entered by: Yara DICKEY CMA AAYAZMIN Blood Pressure: 137/92 (RESP 18, PULSE 88, LEFT) Heart Rate: 86 O2 Saturation: 95 (PAPER MASK) Height: 4 ft 9 in Weight: 159 lb (CLOTHES) Body Mass Index: 34.4 BMI Classification: Obese Impression and Plan 1. Periodic limb movement, moderate, that did not fragment patients sleep. Periodic limb movement of sleep (PLMS) is characterized by episodes of repetitive limb movements that occur during sleep and usually involve the lower limbs. The etiology is unknown sleep hygiene methods can improve sleep as well as lifestyle changes such as regular exercise. Patient was advised that no treatment is needed at this time. If symptoms increase, then further evaluation is indicated. 2. Hypoxemia, moderate, with a cathleen oxygen saturation of 79% and a low baseline oxygen saturation of 90%. The patient spent 87 minutes with oxygen saturation at or below 88%. Further evaluation of low oxygen saturation recommended. Patient should follow up with primary physician. * Followup evaluation of hypoxemia with PCP * Attempt to lose weight * Avoid alcohol consumption near bedtime * The patient is cautioned about driving until sleepiness is completely resolved. * Return as needed for follow up. Counseling Topics: Sleeping position, Weight loss health impact Visit Type: In Office Time Spent with Patient (minutes): 20 Provider Statement: I spent 100% of the Face to Face Visit with the patient with greater than 50% spent counseling the patient and coordination of care.
== END 2022-02-13 15:48 | disposition home or self-care (01) ==
LOC: SC 15:47
PROVIDERS: ATTEND Nurse Practitioner Family
DX: G47.61 Periodic limb movement disorder (principal); R09.02 Hypoxemia; E66.9 Obesity, unspecified; Z68.34 Body mass index [BMI] 34.0-34.9, adult
CPT/HCPCS: 99213; G0463; 99212

== ENCOUNTER 2022-05-02 09:20 | Outpatient (CLI) | payer MEDICAID ==
[2022-05-02 19:10] LABS: BASOPHILS % (AUTO) 0.4 %; EOSINOPHILS # (AUTO) 0.3 10^3/uL (0.0-0.7); EOSINOPHILS % (AUTO) 3.7 %; HCT - HEMATOCRIT 38.9 % (37.0-47.0); HGB - HEMOGLOBIN 11.6 g/dL (12.0-16.0); LYMPHOCYTES # (AUTO) 2.1 10^3/uL (1.5-3.5); LYMPHOCYTES % (AUTO) 28.8 %; MEAN CORPUSCULAR HEMOGLOBIN 26.4 pg (27.0-31.0); MEAN CORPUSCULAR HGB CONC 29.8 g/dL (32.0-36.0); MEAN CORPUSCULAR VOLUME 88.6 fL (81.0-99.0); MEAN PLATELET VOLUME 9.5 fL (7.9-10.8); MONOCYTES # (AUTO) 0.6 10^3/uL (0.0-1.0); MONOCYTES % (AUTO) 8.6 %; NEUTROPHILS # (AUTO) 4.2 10^3/uL (1.5-6.6); NEUTROPHILS % (AUTO) 58.2 %; PLT - PLATELET COUNT 293 10^3/uL (130-450); RED BLOOD COUNT 4.39 10^6/uL (4.20-5.40); RED CELL DISTRIBUTION WIDTH 16.4 % (12.0-15.0); WHITE BLOOD COUNT 7.3 x10^3/uL (4.8-10.8)
[2022-05-02 19:19] LABS: CALCIUM 9.8 mg/dL (8.5-10.3); CARBON DIOXIDE - CO2 29 mmol/L (21-32); CHLORIDE 101 mmol/L (101-111); GLUCOSE 108 mg/dL (70-100); POTASSIUM 4.7 mmol/L (3.5-5.0); SODIUM 137 mmol/L (135-145)
[2022-05-02 19:29] LABS: MICROALBUM/CREATININE RATIO,UR 6.9 ug/mg (<30.0); MICROALBUMIN,URINE 1.1 mg/dL (0-300.0)
[2022-05-02 19:32] LABS: ESTIMATED AVERAGE GLUCOSE 143 mg/dL (70-100); HEMOGLOBIN A1c% 6.6 % (4.27-6.07)
[2022-05-02 19:36] LABS: THYROID STIMULATING HORMONE 1.6 uIU/mL (0.34-5.60)
[2022-05-02 19:59] LABS: ALBUMIN 3.9 g/dL (3.2-5.5); ALKALINE PHOSPHATASE 85 IU/L (42-121); ALT ALANINE AMINOTRANSFERASE 23 IU/L (10-60); AST ASPARTATE AMINOTRANSFERASE 23 IU/L (10-42); BILIRUBIN,TOTAL 0.4 mg/dL (0.2-1.0); BUN - BLOOD UREA NITROGEN 19 mg/dL (6-20); CHOL/HDL RATIO 2.6 (<4.4); CHOLESTEROL 123 mg/dL; CREATININE 0.7 mg/dL (0.4-1.0); GFR - MDRD 84 (>89); HDL CHOLESTEROL 48 mg/dL; LDL CHOLESTEROL,CALCULATED 45 mg/dL; LDL/HDL RATIO 0.9 (<4.4); TOTAL PROTEIN 7.8 g/dL (6.7-8.2); TRIGLYCERIDES 149 mg/dL; VLDL CHOLESTEROL 30 mg/dL
== END 2022-05-02 09:21 | disposition home or self-care (01) ==
LOC: LAB.N 09:20
PROVIDERS: ATTEND Family Medicine
DX: E03.9 Hypothyroidism, unspecified (principal); F17.200 Nicotine dependence, unspecified, uncomplicated; K80.20 Calculus of gallbladder without cholecystitis without obstruction; M43.06 Spondylolysis, lumbar region; J44.9 Chronic obstructive pulmonary disease, unspecified; I10 Essential (primary) hypertension; E78.5 Hyperlipidemia, unspecified; E11.9 Type 2 diabetes mellitus without complications; F41.9 Anxiety disorder, unspecified; F32.A Depression, unspecified
CPT/HCPCS: 36415; 80053; 80061; 82043; 82570; 83036; 83721; 84443; 85025

== ENCOUNTER 2022-09-23 15:23 | Outpatient (CLI) | payer MEDICAID ==
--- NOTE | 2022-09-29 11:41 | Mammography Report ---
BILATERAL DIGITAL SCREENING MAMMOGRAM 3D/2D: 09/23/2022 CLINICAL: Routine screening. No prior exams were available for comparison. There are scattered areas of fibroglandular density in both breasts (category b / 25%-50% glandular t issue). There is a 0.8 cm oval equal density focal asymmetry in the right breast at 7 o'clock middle depth. No other significant masses, calcifications, or other findings are seen in either breast. IMPRESSION: INCOMPLETE: NEEDS ADDITIONAL IMAGING EVALUATION The 0.8 cm oval equal density focal asymmetry in the right breast resembles a lymph node and is indet erminate. Additional views with possible ultrasound are recommended. Based on the Tyrer Cuzick model (a risk assessment model) the patients lifetime risk is 4.7% and her 10 year risk is 2.1%. According to the ACR, ACS, and NCCN guidelines, an annual breast MRI exam kirby g with mammogram is recommended if the patients lifetime risk is 20% or greater. This exam was interpreted at Station ID: [id number]. NOTE: For mammograms, a report in lay terms will be sent to the patient. Approximately 15% of breast malignancies will not be visualized mammographically. In the management of a palpable breast mass, a negative mammogram must not discourage biopsy of a clinically suspicious lesion. Electronically Signed By: Cesar Cardenas M.D. aty/:09/29/2022 07:58:34 ACR BI-RADS Category 0: Incomplete 3340F PARENCHYMAL PATTERN: (A) - The breast(s) demonstrate(s) scattered fibroglandular densities. BI-RADS CATEGORY: (0) - 0 Mammo and [place] [id number] Immediate follow-up LATERALITY: (R)
== END 2022-09-23 15:24 | disposition home or self-care (01) ==
LOC: DI.N 15:23
DX: Z12.31 Encounter for screening mammogram for malignant neoplasm of breast (principal); R92.8 Other abnormal and inconclusive findings on diagnostic imaging of breast

== ENCOUNTER 2022-10-03 10:51 | Outpatient (CLI) | payer MEDICAID ==
--- NOTE | 2022-10-03 12:59 | XRAY Report ---
PROCEDURE: Foot 3 View LT INDICATIONS: LEFT FOOT PAIN TECHNIQUE: 3 views of the foot were acquired. COMPARISON: None FINDINGS: Bones: No fractures or dislocations. No suspicious bony lesions. Soft tissues: No tibiotalar joint effusion. Achilles tendon appears normal. IMPRESSION: Unremarkable left foot radiographs Reviewed by: Zoran Norris MD on 10/03/2022 11:58 AM [facility] Approved by: Zoran Norris MD on 10/03/2022 11:58 AM [facility] Station ID: [id number]
== END 2022-10-03 10:52 | disposition home or self-care (01) ==
LOC: DI 10:51
PROVIDERS: ATTEND Physician Assistant
DX: M79.672 Pain in left foot (principal)

== ENCOUNTER 2022-10-12 07:13 | Outpatient (CLI) | payer MEDICAID ==
[2022-10-12 12:21] LABS: BASOPHILS % (AUTO) 0.4 %; EOSINOPHILS # (AUTO) 0.2 10^3/uL (0.0-0.7); EOSINOPHILS % (AUTO) 2.1 %; HCT - HEMATOCRIT 39.1 % (37.0-47.0); HGB - HEMOGLOBIN 11.4 g/dL (12.0-16.0); LYMPHOCYTES # (AUTO) 1.9 10^3/uL (1.5-3.5); LYMPHOCYTES % (AUTO) 25.4 %; MEAN CORPUSCULAR HEMOGLOBIN 25.1 pg (27.0-31.0); MEAN CORPUSCULAR HGB CONC 29.2 g/dL (32.0-36.0); MEAN CORPUSCULAR VOLUME 86.1 fL (81.0-99.0); MEAN PLATELET VOLUME 9.5 fL (7.9-10.8); MONOCYTES # (AUTO) 0.7 10^3/uL (0.0-1.0); MONOCYTES % (AUTO) 9.2 %; NEUTROPHILS # (AUTO) 4.7 10^3/uL (1.5-6.6); NEUTROPHILS % (AUTO) 62.8 %; PLT - PLATELET COUNT 333 10^3/uL (130-450); RED BLOOD COUNT 4.54 10^6/uL (4.20-5.40); RED CELL DISTRIBUTION WIDTH 16.5 % (12.0-15.0); WHITE BLOOD COUNT 7.5 x10^3/uL (4.8-10.8)
[2022-10-12 13:23] LABS: THYROID STIMULATING HORMONE 2.86 uIU/mL (0.34-5.60)
[2022-10-12 13:42] LABS: ESTIMATED AVERAGE GLUCOSE 140 mg/dL (70-100); HEMOGLOBIN A1c% 6.5 % (4.27-6.07)
[2022-10-12 13:50] LABS: ALBUMIN 3.7 g/dL (3.2-5.5); ALBUMIN/GLOBULIN RATIO 0.8 (1.0-2.2); BILIRUBIN,TOTAL 0.5 mg/dL (0.2-1.0); CALCIUM 9.9 mg/dL (8.5-10.3); CREATININE 0.7 mg/dL (0.4-1.0); POTASSIUM 4.5 mmol/L (3.5-5.0); TOTAL PROTEIN 8.3 g/dL (6.7-8.2)
== END 2022-10-12 07:14 | disposition home or self-care (01) ==
LOC: LAB.N 07:13
PROVIDERS: ATTEND Family Medicine
DX: I12.9 Hypertensive chronic kidney disease with stage 1 through stage 4 chronic kidney disease, or unspecified chronic kidney disease (principal); E11.22 Type 2 diabetes mellitus with diabetic chronic kidney disease; N18.2 Chronic kidney disease, stage 2 (mild); F17.200 Nicotine dependence, unspecified, uncomplicated; E66.9 Obesity, unspecified; M46.96 Unspecified inflammatory spondylopathy, lumbar region; J44.9 Chronic obstructive pulmonary disease, unspecified; E03.9 Hypothyroidism, unspecified; F41.9 Anxiety disorder, unspecified; F32.A Depression, unspecified
CPT/HCPCS: 36415; 80053; 83036; 84443; 85025

== ENCOUNTER 2022-10-15 07:45 | Outpatient (CLI) | payer MEDICAID ==
--- NOTE | 2022-10-16 15:29 | Ultrasound Report ---
LIMITED ULTRASOUND OF RIGHT BREAST: 10/15/2022 CLINICAL: Patient returns today to evaluate a focal asymmetry in the right breast. Comparison is made to exams dated: 10/15/2022 mammogram and 09/23/2022 mammogram - [facility]. Real-time ultrasound of the right breast 7-9 o'clock region was performed. Mcelroy scale images of the real-time examination were reviewed. No significant abnormalities were seen sonographically in the right breast. IMPRESSION: PROBABLY BENIGN There is no abnormality seen in the right breast to correspond with the mammography finding in the lo wer outer quadrant. A follow-up right mammogram and possible ultrasound in 6 months is recommended to demonstrate stabili ty. This exam was interpreted at Station ID: [id number]. Electronically Signed By: Grupo Samson M.D. ar/:10/15/2022 12:18:16 Ultrasound BI-RADS: 3 Probably benign BI-RADS CATEGORY: (3) - 3 Mammo and US [id number] 6 month follow-up LATERALITY: (R)
--- NOTE | 2022-10-16 15:29 | Mammography Report ---
UNILATERAL RIGHT DIGITAL DIAGNOSTIC MAMMOGRAM 3D/2D WITH SPOT COMPRESSION: 10/15/2022 CLINICAL: Patient returns today to evaluate a focal asymmetry in the right breast. Comparison is made to exam dated: 09/23/2022 mammogram - [facility]. There are scattered areas of fibroglandular density in the right breast (category b / 25%-50% glandul ar tissue). There is a 0.8 cm oval equal density focal asymmetry with an obscured margin in the right breast at 7 o'clock middle depth. This is seen in additional views. No other significant masses or calcifications are seen in the breast. IMPRESSION: INCOMPLETE: NEEDS ADDITIONAL IMAGING EVALUATION The 0.8 cm oval equal density focal asymmetry in the right breast resembles a lymph node and is indet erminate. An ultrasound is recommended. Based on the Tyrer Cuzick model (a risk assessment model) the patients lifetime risk is 4.0% and her 10 year risk is 1.9%. According to the ACR, ACS, and NCCN guidelines, an annual breast MRI exam kirby g with mammogram is recommended if the patients lifetime risk is 20% or greater. This exam was interpreted at Station ID: [id number]. NOTE: For mammograms, a report in lay terms will be sent to the patient. Approximately 15% of breast malignancies will not be visualized mammographically. In the management of a palpable breast mass, a negative mammogram must not discourage biopsy of a clinically suspicious lesion. Electronically Signed By: Grupo brush/penrad:10/15/2022 12:15:46 ACR BI-RADS Category 0: Incomplete 3340F PARENCHYMAL PATTERN: (A) - The breast(s) demonstrate(s) scattered fibroglandular densities. BI-RADS CATEGORY: (0) - 0 Ultrasound [id number] Immediate follow-up LATERALITY: (R)
== END 2022-10-15 07:46 | disposition home or self-care (01) ==
LOC: DI 07:45
PROVIDERS: ATTEND Family Medicine
DX: R92.8 Other abnormal and inconclusive findings on diagnostic imaging of breast (principal)

== ENCOUNTER 2023-01-15 14:49 | Outpatient (CLI) | payer MEDICARE, MEDICAID ==
[2023-01-15 18:03] LABS: CREATININE 0.8 mg/dL (0.4-1.0); POTASSIUM 3.7 mmol/L (3.5-5.0)
[2023-01-15 20:46] LABS: ESTIMATED AVERAGE GLUCOSE 137 mg/dL (70-100); HEMOGLOBIN A1c% 6.4 % (4.27-6.07)
== END 2023-01-15 14:50 | disposition home or self-care (01) ==
LOC: LAB.N 14:49
PROVIDERS: ATTEND Family Medicine
DX: E11.9 Type 2 diabetes mellitus without complications (principal)
CPT/HCPCS: 36415; 80048; 83036